=== PATIENT | male | born 1955 | race Caucasian/White ===

== ENCOUNTER 2024-09-30 05:25 | Inpatient (IN) ==
[2024-09-21 14:26] LABS: Appearance,Urine Clear (Clear); Bilirubin,Urine Negative (Negative); Color,Urine Yellow; Glucose,Urine (UA) Negative (Negative); Ketones,Urine Negative (Negative); Leukocyte Esterase,Urine Negative /uL (Negative); Nitrate,Urine Negative (Negative); Protein,Urine Negative (Negative); Specific Gravity,Urine 1.025 (1.000-1.035); Urine Blood Negative ery/mcL (Negative); Urobilinogen,Urine Normal
[2024-09-21 14:55] LABS: Basophils # (Auto) 0.09 K/mcL (0.00-0.30); Basophils % (Auto) 1.2 % (0.0-2.0); Eosinophils # (Auto) 0.43 K/mcL (0.00-0.70); Eosinophils % (Auto) 5.5 % (0.0-7.0); Hematocrit 50.3 % (40.1-51.0); Hemoglobin 16.8 g/dL (13.7-17.5); Lymphocytes % (Auto) 37.1 % (15.5-49.0); Mean Cell Volume 92.6 fL (80.0-100.0); Mean Corpuscular HGB Conc 33.4 g/dL (31.0-36.0); Monocytes # (Auto) 0.94 K/mcL (0.10-0.90); Neutrophils % (Auto) 43.9 % (38.0-78.0); Platelet Count 213 K/mcL (140-440); RBC 5.43 M/mcL (4.63-6.08); Red Cell Distribution Width 12.6 % (11.5-14.5); WBC 7.8 K/mcL (4.5-11.0)
[2024-09-21 15:14] LABS: ALT/SGPT 20 U/L (<40); AST/SGOT 22 U/L (<40); Albumin 3.8 gm/dL (3.2-5.2); Albumin/Globulin Ratio 1.1 (1.0-2.3); Alkaline Phosphatase 48 U/L (39-117); Bilirubin,Total 0.5 mg/dL (0.1-1.0); Blood Urea Nitrogen 16 mg/dL (8-23); Calcium 9.9 mg/dL (8.6-10.4); Carbon Dioxide 20 mmol/L (22-30); Chloride 105 mmol/L (96-108); Globulin 3.5 gm/dL (2.2-3.7); Glomerular Filtration Rate 75; Glucose 85 mg/dL (70-105); Potassium 4.4 mmol/L (3.3-5.1); Sodium 138 mmol/L (133-145)
[2024-09-21 21:07] LABS: Estimated Average Glucose(eAG) 123 mg/dL; Hemoglobin A1C 5.9 % Hgb (4.0-6.0)
[2024-09-30] MEDS: oxyCODONE 10 MG TAB.ER.12H PO SCH (06:04)
[2024-09-30] MEDS: CELECOXIB 200 MG CAPSULE PO SCH (06:04)
[2024-09-30] MEDS: PREGABALIN 75 MG CAPSULE PO SCH (06:05)
[2024-09-30] MEDS ORDERED: LIDOCAINE 2% PF 5 ML VIAL ONE (07:00)
[2024-09-30] MEDS ORDERED: GLYCOPYRROLATE 0.2 MG/ML VIAL IV ONE (07:00)
[2024-09-30] MEDS ORDERED: DEXAMETHASONE 10 MG/ML VIAL ONE (07:00)
[2024-09-30] MEDS ORDERED: PHENYLephrine 1 MG/10 ML SYRINGE (ANEST) ONE (07:00)
[2024-09-30] MEDS ORDERED: ONDANSETRON 4 MG/2 ML VIAL ONE (07:00)
[2024-09-30] MEDS ORDERED: TRANEXAMIC ACID 1,000 MG/10 ML VIAL ONE (07:00)
[2024-09-30] MEDS ORDERED: ePHEDrine 50 MG/5 ML SYRINGE (ANEST) IV ONE ×2 (07:07→09:52)
[2024-09-30] MEDS ORDERED: METOCLOPRAMIDE 10 MG/2 ML VIAL ONE (07:07)
[2024-09-30] MEDS ORDERED: MIDAZOLAM 2 MG/2 ML VIAL ONE (07:08)
[2024-09-30] MEDS ORDERED: PROPOFOL 200 MG/20 ML VIAL IV ONE (07:08)
[2024-09-30] MEDS ORDERED: KETAMINE 50 MG/ML ML ONE (07:10)
[2024-09-30] MEDS ORDERED: BUPIVACAINE PF 0.5% 10 ML VIAL ONE (08:20)
[2024-09-30] MEDS: ceFAZolin 3 GM in DEXTROSE 5% IN WATER 50 ML IV SCH ×2 (08:28→16:12)
[2024-09-30] MEDS: 0.9 % SODIUM CHLORIDE 9 ML, KETOROLAC 30 MG, ROPIVACAINE HCL/PF 49.5 ML, EPINEPHrine 0.... IJ SCH (09:43)
[2024-09-30] MEDS ORDERED: IPRATROPIUM/ALBUTEROL 3 ML AMPUL.NEB NEB PRN (09:54)
[2024-09-30] MEDS ORDERED: ONDANSETRON 4 MG/2 ML VIAL IV PRN (09:54)
[2024-09-30] MEDS ORDERED: FLEETS ADULT 1 DOSE ENEMA PR PRN (10:54)
[2024-09-30] MEDS ORDERED: BENZOCAINE/MENTHOL 1 LOZENGE PO PRN (10:54)
[2024-09-30] MEDS ORDERED: ROPIVACAINE HCL/PF 30 ML VIAL IJ ONE (11:23)
[2024-09-30] MEDS: TRANEXAMIC ACID 1,000 MG/10 ML VIAL IV SCH (11:50)
[2024-09-30] MEDS: KETOROLAC 15 MG/ML VIAL IV SCH (11:50)
[2024-09-30] MEDS: 0.9 % SODIUM CHLORIDE 1,000 ML IV SCH (12:47)
[2024-09-30] MEDS: 0.9 % SODIUM CHLORIDE 10 ML SYRINGE IV SCH (16:09)
[2024-09-30] MEDS: morphine 4 MG/ML VIAL IV PRN (16:51)
[2024-09-30] MEDS: ONDANSETRON 4 MG/2 ML VIAL IV PRN (18:59)
[2024-09-30] MEDS: LACTATED RINGERS 1,000 ML IV SCH (19:47)
[2024-09-30] MEDS: HYDROcodone/APAP 10/325MG TABLET PO PRN (21:20)
[2024-09-30] MEDS: SENNOSIDES 1 TABLET PO SCH (21:21)
[2024-09-30] MEDS: DOCUSATE SODIUM 100 MG CAPSULE PO SCH (21:21)
[2024-09-30] MEDS: ASPIRIN 81 MG TAB.CHEW PO SCH (21:21)
[2024-09-30] MEDS: ATORVASTATIN 10 MG TABLET PO SCH (21:21)
[2024-10-01] MEDS: LEVOTHYROXINE 150 MCG TABLET PO SCH (07:40)
[2024-10-01] MEDS: HYDROCHLOROTHIAZIDE 12.5 MG CAPSULE PO SCH (10:11)
[2024-10-01] MEDS: LOSARTAN 50 MG TABLET PO SCH (10:11)
[2024-10-01] MEDS: oxyCODONE/APAP 5/325MG TABLET PO PRN (11:35)
[2024-10-02] MEDS: POLYETHYLENE GLYCOL 3350 17 GM PACKET PO PRN (09:29)
[2024-10-02] MEDS: MAGNESIUM HYDROXIDE 30 ML ORAL.SUSP PO PRN (12:33)
[2024-10-02] MEDS: BISACODYL 10 MG SUPP.RECT PR PRN (12:33)
[2024-10-02] MEDS ORDERED: BISACODYL 10 MG SUPP.RECT PR PRN (13:41)
[2024-10-02] MEDS ORDERED: HYDROmorphone 0.5 MG/0.5 ML SYRINGE IV PRN (13:43)
[2024-10-02] MEDS ORDERED: oxyCODONE IR 5 MG TABLET PO PRN (14:03)
[2024-10-02] MEDS: KETOROLAC 15 MG/ML VIAL IV PRN (14:33)
[2024-10-02] MEDS: MAGNESIUM CITRATE 300 ML ORAL.SOL PO SCH (14:33)
[2024-10-02] MEDS: ACETAMINOPHEN 500 MG TABLET PO PRN (18:49)
[2024-10-03] MEDS: ceFAZolin 1 GM VIAL IV SCH (07:07)
== END 2024-10-03 15:50 | DRG 470 ==
LOC: MEDSUR 05:25
PROVIDERS: ADMIT Orthopaedic Surgery; ATTEND Orthopaedic Surgery